=== PATIENT | female | born 1985 | race Two or more races ===

== ENCOUNTER 2021-06-27 18:21 | Emergency (ER) | payer SELFPAY ==
[2021-06-27] MEDS ORDERED: IBU600 MG PO (20:27)
== END 2021-06-27 21:19 | disposition home or self-care (01) ==
LOC: FER 18:21
DX: S82.831A Other fracture of upper and lower end of right fibula, initial encounter for closed fracture (principal); S82.301A Unspecified fracture of lower end of right tibia, initial encounter for closed fracture; W19.XXXA Unspecified fall, initial encounter; Y92.009 Unspecified place in unspecified non-institutional (private) residence as the place of occurrence of the external cause
CPT/HCPCS: 73610

== ENCOUNTER → 2021-07-07 | Day surgery (SDC) | payer OTHER ==
[~2021-07-07] MED LIST: IBU600 MG PO
[2021-07-07 12:33] LABS: HCG (URINE) SCREEN NEGATIVE (NEGATIVE)
[2021-07-07 12:41] LABS: HCT 39.3 % (37.0-47.0); HGB 13.1 g/dl (12.5-16.0); MCH 29.6 pg (25.0-31.0); MCHC 33.3 g/dL (32.0-36.0); MCV 88.9 fL (78.0-100.0); RBC 4.42 M/uL (4.20-5.40); RDW 12.6 % (11.5-14.0); WBC 5.7 K/uL (4.0-10.5)
[2021-07-07 13:05] LABS: ALBUMIN 3.9 g/dL (3.4-5.0); BILIRUBIN - TOTAL 0.3 mg/dL (0.2-1.0); BUN/CREAT RATIO (CALC) 30.5 RATIO; CREATININE 0.59 mg/dL (0.51-0.95); GLOBULIN (CALCULATION) 3.5 g/dL; POTASSIUM 3.7 mmol/L (3.5-5.1); TOTAL PROTEIN 7.4 g/dL (6.4-8.2)
== END | disposition home or self-care (01) ==
LOC: FAS 11:33
PROVIDERS: Orthopaedic Surgery
DX: S82.841A Displaced bimalleolar fracture of right lower leg, initial encounter for closed fracture (principal); S93.01XA Subluxation of right ankle joint, initial encounter; M25.771 Osteophyte, right ankle; W19.XXXA Unspecified fall, initial encounter; X50.1XXA Overexertion from prolonged static or awkward postures, initial encounter; Y92.9 Unspecified place or not applicable
CPT/HCPCS: 36415; 73600; 76000; 80053; 84703; C1713; J0690; J1100; J1170; J2250; J2405; J2704; J3010; J7120

== ENCOUNTER 2021-11-21 09:32 | Emergency (ER) | payer SELFPAY ==
[2021-11-21 11:11] LABS: BASOPHIL 0.9 % (0-2); EOSINOPHIL 10.2 % (0-5); HCT 39.8 % (37.0-47.0); HGB 13.1 g/dl (12.5-16.0); LYMPHOCYTE 29.6 % (15-48); MCH 29.7 pg (25.0-31.0); MCHC 32.9 g/dL (32.0-36.0); MCV 90.2 fL (78.0-100.0); MONOCYTE 7.2 % (0-12); MPV 9.1 fL (6.0-9.5); NEUTROPHIL 51.8 % (41-80); NRBC 0; PLT 240 K/uL (150-400); RBC 4.41 M/uL (4.20-5.40); RDW 12.6 % (11.5-14.0); WBC 6.7 K/uL (4.0-10.5)
[2021-11-21 11:21] LABS: PROTHROMBIN TIME 12.6 SECONDS (11.8-13.4)
[2021-11-21 11:22] LABS: PTT 28.4 SECONDS (24.4-34.7)
[2021-11-21 11:34] LABS: ALKALINE PHOSHATASE 69 U/L (46-116); ALT 15 U/L (14-59); AST 29 U/L (15-37); BILIRUBIN - TOTAL 0.6 mg/dL (0.2-1.0); BUN 16 mg/dL (7-18); BUN/CREAT RATIO (CALC) 27.1 RATIO; CHLORIDE 104 mmol/L (98-107); CHOLESTEROL 181 mg/dL (<200); CO2 (BICARBONATE) 23 mmol/L (21-32); CPK 48 U/L (26-192); CREATININE 0.59 mg/dL (0.51-0.95); GLOBULIN (CALCULATION) 3.2 g/dL; GLUCOSE 93 mg/dL (74-106); HDL 53 mg/dL (40-60); LDL - DIRECT 110 mg/dL (<100); POTASSIUM 3.7 mmol/L (3.5-5.1); TOTAL PROTEIN 7.2 g/dL (6.4-8.2); TRIGLYCERIDES 117 mg/dL (<150)
[2021-11-21 11:45] LABS: CKMB <0.5 ng/mL (0.0-3.6)
[2021-11-21 12:52] LABS: RBC (FLUID) 0 RBC/uL
[2021-11-21 13:33] LABS: WBC (FLUID) 22 WBC/uL
[2021-11-21 13:39] LABS: CLARITY (FLUID) CLEAR; COLOR (FLUID) COLORLESS
[2021-11-21] MEDS ORDERED: PREDNISONE 20MG20 MG PO (19:23)
== END 2021-11-22 01:20 | disposition home or self-care (01) ==
LOC: FER 09:32
PROVIDERS: Emergency Medicine
DX: G51.0 Bell's palsy (principal); R45.851 Suicidal ideations; Z28.310 Unvaccinated for COVID-19
CPT/HCPCS: 36415; 70450; 71045; 80053; 80061; 82550; 82553; 82945; 83874; 84155; 84484; 85025; 85610; 85730; 87070; 87205; 89051; 93005; J7512; Q9967